=== PATIENT | female | born 1985 | race Caucasian/White ===

== ENCOUNTER 2019-02-06 09:02 | Emergency (ER) | payer OTHER ==
[~2019-02-06] VITALS: Ht 160 cm; Wt 36.3 kg
[~2019-02-06 09:02] MED LIST: INTESTINEX1 CAP PO; PEPCID20 MG PO
[2019-02-06] MEDS ORDERED: INTESTINEX680 M1 PO (22:30)
[2019-02-06] MEDS ORDERED: MEDROLPACK PO (22:30)
[2019-02-06] MEDS ORDERED: CLINDAMYCIN HC300 MG PO (22:30)
[2019-02-06] MEDS ORDERED: PEPCID AC20 MG PO (22:30)
== END 2019-02-06 22:40 | disposition home or self-care (01) ==
LOC: ER 09:02
DX: J35.01 Chronic tonsillitis (principal); K52.9 Noninfective gastroenteritis and colitis, unspecified; E86.0 Dehydration

== ENCOUNTER → 2022-02-28 | Emergency (ER) | payer OTHER ==
[~2022-02-28] VITALS: Ht 160 cm; Wt 49.9 kg
[~2022-02-28] MED LIST changes: +CLINDAMYCIN HC300 MG PO; +INTESTINEX680 M1 PO; +MEDROLPACK PO; +PEPCID AC20 MG PO
== END | disposition home or self-care (01) ==
LOC: ER 09:00
DX: K52.9 Noninfective gastroenteritis and colitis, unspecified (principal); B34.9 Viral infection, unspecified; Z20.822 Contact with and (suspected) exposure to COVID-19